=== PATIENT | female | born 1960 | race Caucasian/White ===

== ENCOUNTER 2018-12-24 06:25 | Day surgery (SDC) | payer BC ==
[~2018-12-24 06:25] MED LIST: Acetaminophen TAB* 325 MG PO PRN; Buffered Lidocaine 1% SYRIN* 1 ML/SYRINGE INTRADERM ONE; mitoMYcin 0.2 MG (0.02%) in Sterile Water for Inj* 1 ML SCH
[2018-12-24] MEDS ORDERED: BSS OPTH.SOL* BTL ONE (07:22)
[2018-12-24] MEDS ORDERED: Midazolam* 1 MG/ML 2 ML VIAL (2 MG) ONE ×2 (07:25→07:40)
[2018-12-24 08:20] VITALS: BP 134/90
--- NOTE | 2018-12-24 08:58 | OP ---
OPERATIVE REPORT: DATE OF OPERATION: 12/24/18 DATE OF : 62 SURGEON: Cody Bales MD ANESTHESIA: Local with MAC. PRE-OP DIAGNOSIS: Glaucoma, left eye. POST-OP DIAGNOSIS: Glaucoma, left eye. OPERATIVE PROCEDURE: Xen stent, left eye. COMPLICATIONS: None. DESCRIPTION OF PROCEDURE: The patient was given 2% lidocaine with epinephrine topical. Eye was prep ped and draped in the usual sterile fashion in the left eye. Lid speculum was placed. The Xen stent was prepared. Paracentesis made at the 1 o'clock position with 75 blade. Anterior chamber irrigate d with 1% non- preservative intracameral lidocaine followed by Miostat, followed by Provisc. A 1.8 m m clear corneal incision was made at the 7 o'clock position. Xen stent placed at the 1 o'clock posit ion without difficulty using its varnishing unit operator. Mitomycin C 0.2 mg/mL was infused subconjunctival at the area of the Xen stent. Anterior chamber was irrigated using balanced salt solution and all wounds ch ecked and found to be watertight. [id number]/[facility] #: [id number]
[2018-12-24] MEDS ORDERED: Lidocaine 2% EPI 1:200000 MPF*10-20 ML VIAL ONE (11:19)
[2018-12-24] MEDS ORDERED: Proparacaine 0.5% OPHTH.SOL* 15 ML BTL ONE (11:19)
[2018-12-24] MEDS ORDERED: Neomycin/Polymy/Dex OPTH.SUSP* MAXITROL 0.1% 5 ML ONE (11:19)
[2018-12-24] MEDS ORDERED: Lidocaine 1%** 5 ML VIAL ONE (11:19)
[2018-12-24] MEDS ORDERED: Povidone Iodine 5% OPTH* 30 ML BTL ONE (11:19)
== END 2018-12-24 08:10 | disposition home or self-care (01) ==
LOC: OREAST 06:25
PROVIDERS: ATTEND Specialist
DX: H40.1123 Primary open-angle glaucoma, left eye, severe stage (principal)
CPT/HCPCS: A9270-GY; C1725; J2250; J9280

== ENCOUNTER 2019-01-07 06:16 | Day surgery (SDC) | payer BC ==
[2019-01-07] MEDS ORDERED: Carbachol 0.01% OPH.SOL* 1.5 ML OPHTH.SOLN ONE (07:25)
[2019-01-07] MEDS ORDERED: Midazolam* 1 MG/ML 5 ML VIAL (5 MG) ONE (07:26)
[2019-01-07] MEDS ORDERED: Propofol* 10 MG/ML 20 ML BTL ONE (07:41)
[2019-01-07] MEDS ORDERED: Lidocaine 2% PF * 5 ML VIAL ONE (07:41)
[2019-01-07 08:16] VITALS: BP 141/87
--- NOTE | 2019-01-07 09:56 | OP ---
OPERATIVE REPORT: DATE OF OPERATION: 01/07/19 DATE OF : 62 SURGEON: Cody Bales MD. PRE-OP DIAGNOSIS: Uncontrolled glaucoma, right. POST-OP DIAGNOSIS: Uncontrolled glaucoma, right. OPERATIVE PROCEDURE: Xen implant, right. DESCRIPTION OF PROCEDURE: The patient was prepped and draped in the usual sterile fashion. Lid spec ulum was placed. 2% lidocaine with epinephrine infused into the anterior chamber followed by Miostat , followed by Provisc. A clear corneal incision made at the 7 o'clock position with the keratome. X en implant placed at the 1 o'clock position subconjunctivally without difficulty using a shooter. Ant erior chamber then thoroughly irrigated with balanced salt solution, mitomycin C 0.2 mg/mL, 0.1 mL in jected near the opening subconjunctivally at the Xen and then further irrigation with balanced salt s olution performed. Topical Maxitrol given. [id number]/[facility] #: [id number]
[2019-01-07] MEDS ORDERED: Lidocaine 2% w/ EPI 1:200,000* 20 ML VIAL ONE (12:18)
[2019-01-07] MEDS ORDERED: Povidone Iodine 5% OPTH* 30 ML BTL ONE (12:18)
[2019-01-07] MEDS ORDERED: Neomycin/Polymy/Dex OPTH.SUSP* MAXITROL 0.1% 5 ML ONE (12:18)
[2019-01-07] MEDS ORDERED: Lidocaine 1% MPF ** 5 ML VIAL ONE (12:18)
[2019-01-07] MEDS ORDERED: Proparacaine 0.5% OPHTH.SOL* 15 ML BTL ONE (12:18)
== END 2019-01-07 08:12 | disposition home or self-care (01) ==
LOC: OREAST 06:16
PROVIDERS: ATTEND Specialist
DX: H40.1112 Primary open-angle glaucoma, right eye, moderate stage (principal)
CPT/HCPCS: A9270-GY; C1725; J2250; J2704; J9280